=== PATIENT | female | born 1955 | race Caucasian/White ===

== ENCOUNTER 2019-05-02 11:58 | Inpatient (IN) | payer BC, OTHER ==
[~2019-05-02] VITALS: Ht 165.1 cm; Wt 108.4 kg
[~2019-05-02 11:58] MED LIST: FAMO-132 PO; HYDR25TA4 PO; INSULIN; METF1000 PO; NORCO5 PO; VYTORIN
[2019-05-02 12:19] VITALS: BP_SYST 148
[2019-05-02] MEDS ORDERED: NACL 0.9% 1,000 ML IV ONE (12:58)
[2019-05-02] MEDS ORDERED: ONDANSETRON HCL 4 MG/2 ML VIAL IVP ONE ×3 (13:00→15:30)
[2019-05-02] MEDS ORDERED: KETOROLAC TROMETHAMINE 30 MG VIAL IVP ONE (13:00)
[2019-05-02 13:32] LABS: BILIRUBIN,URINE NEGATIVE (NEGATIVE); BLOOD, URINE NEGATIVE (NEGATIVE); CLARITY/URINE CLEAR (CLEAR); COLOR,URINE YELLOW (YELLOW); GLUCOSE,URINE 3+ (NEGATIVE); KETONES,URINE TRACE (NEGATIVE); LEUKOCYTE ESTERASE ,URINE NEGATIVE (NEGATIVE); NITRITE, URINE NEGATIVE (NEGATIVE); PROTEIN URINE TRACE (NEGATIVE); UROBILINOGEN,URINE 0.2 (0.2-1.0)
[2019-05-02 13:49] LABS: ALBUMIN 3.7 g/dL (3.4-4.8); CALCIUM 9.4 mg/dL (8.4-11.0); CREATININE 1.24 mg/dL (0.55-1.30); POTASSIUM 4.5 mmol/L (3.5-5.1); TOTAL BILIRUBIN 1.2 mg/dL (0.0-1.0)
[2019-05-02 13:55] LABS: BACTERIA,URINE FEW /HPF (None Seen); RBC,URINE 0-3 /HPF (0-3); WBC,URINE 0-3 /HPF (0-3)
[2019-05-02 13:56] LABS: MUCUS,URINE None Seen /LPF (None Seen)
[2019-05-02] MEDS ORDERED: INSULIN REGULAR, HUMAN 10 UNITS/0.1 ML INJ IVP ONE ×2 (14:00→16:30)
[2019-05-02] MEDS ORDERED: fentaNYL CITRATE/PF 100 MCG/2 ML AMP IVP ONE (14:00)
[2019-05-02 14:02] LABS: BASOPHILS % (AUTO) 0.2 % (0.0-2.0); EOSINOPHILS % (AUTO) 0.1 % (0.0-4.0); HEMATOCRIT 36.9 % (36-48); HEMOGLOBIN 12.7 g/dL (12.0-16.0); LYMPHOCYTES # (AUTO) 1.6 K/uL (1.0-5.5); MEAN CORPUSCULAR HEMOGLOBIN 30 pg (27-31); MEAN CORPUSCULAR HGB CONC 34 % (32-36); MEAN CORPUSCULAR VOLUME 88 fL (79.0-98.0); MONOCYTES # (AUTO) 0.3 K/uL (0.0-1.0); MONOCYTES % (AUTO) 3.1 % (1.7-9.3); NEUTROPHILS # (AUTO) 7.1 K/uL (1.8-7.7); NEUTROPHILS % (AUTO) 78.6 % (40.0-70.0); PLATELET COUNT (AUTO) 217 K/uL (130-430); RED BLOOD CELL COUNT(AUTO) 4.21 MIL/uL (4.2-6.2); RED CELL DISTRIBUTION WIDTH 14.7 % (9.0-15.0)
[2019-05-02] MEDS ORDERED: LOSA100T3 PO (14:24)
[2019-05-02] MEDS ORDERED: LYR50 PO (14:24)
[2019-05-02] MEDS ORDERED: BUSP10TA3 PO (14:24)
[2019-05-02] MEDS ORDERED: ROSU40TA PO (14:24)
[2019-05-02] MEDS ORDERED: HYDR-3925 PO (14:24)
[2019-05-02] MEDS ORDERED: INSU500I SQ (14:24)
[2019-05-02] MEDS ORDERED: MORPHINE 4 MG/ML INJ. SYRINGE IVP ONE (15:30)
[2019-05-02] MEDS ORDERED: KETAMINE 30 MG/3 ML SYRINGE 30 MG in NS 100 ML IV ONE (17:30)
[2019-05-02] MEDS ORDERED: KETAMINE 30 MG/3 ML SYRINGE ONE (17:41)
[2019-05-02] MEDS ORDERED: MORPHINE 2 MG/ML INJ. SYRINGE IVP PRN (17:45)
[2019-05-02] MEDS ORDERED: MAGNESIUM SULFATE 50 ML IV PRN (17:45)
[2019-05-02] MEDS ORDERED: POTASSIUM CHLORIDE 20 MEQ TAB.PRT.SR PO PRN (17:45)
[2019-05-02] MEDS ORDERED: ACETAMINOPHEN 325 MG TABLET PO PRN (17:45)
[2019-05-02] MEDS ORDERED: LORazepam 2 MG/ML VIAL IVP PRN (17:45)
[2019-05-02] MEDS ORDERED: DEXTROSE 50% JECT 50 ML DISP.SYRIN IVP PRN (17:45)
[2019-05-02] MEDS ORDERED: ZOLPIDEM TARTRATE 5 MG TABLET PO PRN (17:45)
[2019-05-02] MEDS ORDERED: MUPIROCIN 2% TOPICAL OINTMENT 22 GM NS PRN (17:45)
[2019-05-02] MEDS ORDERED: DOCUSATE SODIUM 100 MG CAPSULE PO PRN (17:45)
[2019-05-02 18:03] VITALS: BP_SYST 143
[2019-05-02] MEDS: NACL 0.9% 1,000 ML IV SCH (18:16)
[2019-05-02] MEDS: INSULIN LISPRO SLIDING SCALE 100 UNITS/ML VIAL (humaLOG) SUBCUT PRN ×2 (18:28→21:00)
[2019-05-02] MEDS: busPIRone HCL 5 MG TABLET PO SCH (20:10)
[2019-05-02] MEDS: MORPHINE 2 MG/ML INJ. SYRINGE IVP PRN (20:11)
[2019-05-02] MEDS ORDERED: PREGABALIN PO SCH ×2 (21:00)
[2019-05-02] MEDS ORDERED: PREGABALIN 25 MG CAPSULE (LYRICA) PO SCH (21:00)
[2019-05-02] MEDS: HEPARIN SODIUM,PORCINE 5000 UNITS/ML VIAL SUBCUT SCH (21:02)
[2019-05-02] MEDS: INSULIN GLARGINE 100 UNITS/ML 10 ML VIAL SUBCUT SCH (21:04)
[2019-05-02] MEDS: ONDANSETRON HCL 4 MG/2 ML VIAL IVP PRN (23:05)
[2019-05-03 00:15] VITALS: BP_SYST 158
[2019-05-03] MEDS: MORPHINE 2 MG/ML INJ. SYRINGE IVP PRN ×5 (00:37→20:53)
[2019-05-03] MEDS: NACL 0.9% 1,000 ML IV SCH ×2 (04:39→17:38)
[2019-05-03] MEDS: INSULIN LISPRO SLIDING SCALE 100 UNITS/ML VIAL (humaLOG) SUBCUT PRN ×4 (05:48→20:46)
[2019-05-03] MEDS: ONDANSETRON HCL 4 MG/2 ML VIAL IVP PRN (06:33)
[2019-05-03 07:31] LABS: BASOPHILS % (AUTO) 0.2 % (0.0-2.0); EOSINOPHILS % (AUTO) 0.2 % (0.0-4.0); HEMATOCRIT 38.3 % (36-48); HEMOGLOBIN 13.1 g/dL (12.0-16.0); LYMPHOCYTES # (AUTO) 2.1 K/uL (1.0-5.5); MEAN CORPUSCULAR HEMOGLOBIN 30 pg (27-31); MEAN CORPUSCULAR HGB CONC 34 % (32-36); MEAN CORPUSCULAR VOLUME 88 fL (79.0-98.0); MONOCYTES # (AUTO) 0.5 K/uL (0.0-1.0); MONOCYTES % (AUTO) 6.3 % (1.7-9.3); NEUTROPHILS # (AUTO) 5.8 K/uL (1.8-7.7); NEUTROPHILS % (AUTO) 68.3 % (40.0-70.0); PLATELET COUNT (AUTO) 269 K/uL (130-430); RED BLOOD CELL COUNT(AUTO) 4.36 MIL/uL (4.2-6.2); RED CELL DISTRIBUTION WIDTH 14.6 % (9.0-15.0); WHITE BLOOD COUNT (AUTO) 8.6 K/uL (4.8-10.8)
[2019-05-03 07:36] LABS: CALCIUM 10.1 mg/dL (8.4-11.0); CREATININE 1.31 mg/dL (0.55-1.30); POTASSIUM 3.6 mmol/L (3.5-5.1)
[2019-05-03 07:50] VITALS: BP_SYST 144
[2019-05-03] MEDS ORDERED: PREGABALIN 25 MG CAPSULE (LYRICA) ONE (08:29)
[2019-05-03] MEDS: ATORVASTATIN 20 MG TABLET PO SCH (08:33)
[2019-05-03] MEDS: PREGABALIN 75 MG CAPSULE (LYRICA) PO SCH ×3 (08:34→20:30)
[2019-05-03] MEDS: busPIRone HCL 5 MG TABLET PO SCH ×2 (08:36→20:31)
[2019-05-03] MEDS: LOSARTAN POTASSIUM 50 MG TABLET (COZAAR) PO SCH (08:37)
[2019-05-03] MEDS: HEPARIN SODIUM,PORCINE 5000 UNITS/ML VIAL SUBCUT SCH ×2 (08:39→20:33)
[2019-05-03] MEDS ORDERED: PREGABALIN 25 MG CAPSULE (LYRICA) PO ONE (08:45)
[2019-05-03] MEDS ORDERED: ROSUVASTATIN CALCIUM 5 MG/TAB (CRESTOR) PO SCH (09:00)
[2019-05-03] MEDS: HYDROcodone/ACETAMIN 10-325 MG TAB PO PRN ×3 (11:16→23:43)
[2019-05-03 12:10] VITALS: BP_SYST 112
[2019-05-03] MEDS: PREGABALIN 25 MG CAPSULE (LYRICA) PO SCH ×2 (14:34→20:30)
[2019-05-03 16:15] VITALS: BP_SYST 120
[2019-05-03] MEDS: INSULIN GLARGINE 100 UNITS/ML 10 ML VIAL SUBCUT SCH (20:43)
[2019-05-04 00:10] VITALS: BP_SYST 131
[2019-05-04] MEDS: MORPHINE 2 MG/ML INJ. SYRINGE IVP PRN ×3 (02:11→18:41)
[2019-05-04] MEDS: NACL 0.9% 1,000 ML IV SCH ×2 (06:06→19:44)
[2019-05-04] MEDS: HYDROcodone/ACETAMIN 10-325 MG TAB PO PRN ×3 (06:07→20:58)
[2019-05-04] MEDS: INSULIN LISPRO SLIDING SCALE 100 UNITS/ML VIAL (humaLOG) SUBCUT PRN ×4 (06:11→20:59)
[2019-05-04 06:13] LABS: CALCIUM 9.3 mg/dL (8.4-11.0); CREATININE 1.17 mg/dL (0.55-1.30); POTASSIUM 4.1 mmol/L (3.5-5.1)
[2019-05-04 06:19] LABS: BASOPHILS % (AUTO) 0.5 % (0.0-2.0); EOSINOPHILS # (AUTO) 0.1 K/uL (0.0-0.4); EOSINOPHILS % (AUTO) 0.6 % (0.0-4.0); HEMATOCRIT 33.8 % (36-48); HEMOGLOBIN 11.6 g/dL (12.0-16.0); LYMPHOCYTES # (AUTO) 3.4 K/uL (1.0-5.5); LYMPHOCYTES % (AUTO) 37.5 % (20.5-51.5); MEAN CORPUSCULAR HEMOGLOBIN 30 pg (27-31); MEAN CORPUSCULAR HGB CONC 34 % (32-36); MEAN CORPUSCULAR VOLUME 88 fL (79.0-98.0); MONOCYTES # (AUTO) 0.8 K/uL (0.0-1.0); MONOCYTES % (AUTO) 8.2 % (1.7-9.3); NEUTROPHILS # (AUTO) 4.9 K/uL (1.8-7.7); NEUTROPHILS % (AUTO) 53.2 % (40.0-70.0); PLATELET COUNT (AUTO) 215 K/uL (130-430); RED BLOOD CELL COUNT(AUTO) 3.85 MIL/uL (4.2-6.2); RED CELL DISTRIBUTION WIDTH 14.6 % (9.0-15.0); WHITE BLOOD COUNT (AUTO) 9.2 K/uL (4.8-10.8)
[2019-05-04 08:00] VITALS: BP_SYST 116
[2019-05-04] MEDS: PREGABALIN 25 MG CAPSULE (LYRICA) PO SCH ×3 (09:07→20:54)
[2019-05-04] MEDS: ATORVASTATIN 20 MG TABLET PO SCH (09:07)
[2019-05-04] MEDS: busPIRone HCL 5 MG TABLET PO SCH ×2 (09:07→20:54)
[2019-05-04] MEDS: LOSARTAN POTASSIUM 50 MG TABLET (COZAAR) PO SCH (09:08)
[2019-05-04] MEDS: HEPARIN SODIUM,PORCINE 5000 UNITS/ML VIAL SUBCUT SCH ×2 (09:12→20:55)
[2019-05-04] MEDS: PREGABALIN 75 MG CAPSULE (LYRICA) PO SCH ×3 (09:24→20:54)
[2019-05-04] MEDS ORDERED: INSULIN NPH/REGULAR 70-30, 100 UNITS/ML, 10 ML VIAL SUBCUT ONE (09:45)
[2019-05-04 11:24] VITALS: BP_SYST 134
[2019-05-04] MEDS: cefTRIAXone 1 GM in D5W 50 ML IV SCH (11:26)
[2019-05-04 15:11] VITALS: BP_SYST 139
[2019-05-04] MEDS: INSULIN NPH/REGULAR 70-30, 100 UNITS/ML, 10 ML VIAL SUBCUT SCH (16:25)
[2019-05-04] MEDS: INSULIN GLARGINE 100 UNITS/ML 10 ML VIAL SUBCUT SCH (20:58)
[2019-05-05 00:12] VITALS: BP_SYST 107
[2019-05-05] MEDS: MORPHINE 2 MG/ML INJ. SYRINGE IVP PRN ×2 (00:51→06:32)
[2019-05-05] MEDS: HYDROcodone/ACETAMIN 10-325 MG TAB PO PRN ×2 (04:01→11:42)
[2019-05-05] MEDS: INSULIN LISPRO SLIDING SCALE 100 UNITS/ML VIAL (humaLOG) SUBCUT PRN ×2 (06:30→11:41)
[2019-05-05] MEDS: INSULIN NPH/REGULAR 70-30, 100 UNITS/ML, 10 ML VIAL SUBCUT SCH (06:30)
[2019-05-05 08:11] VITALS: BP_SYST 148
[2019-05-05] MEDS: NACL 0.9% 1,000 ML IV SCH (08:15)
[2019-05-05] MEDS: ATORVASTATIN 20 MG TABLET PO SCH (08:15)
[2019-05-05] MEDS: busPIRone HCL 5 MG TABLET PO SCH (08:16)
[2019-05-05] MEDS: PREGABALIN 75 MG CAPSULE (LYRICA) PO SCH (08:16)
[2019-05-05] MEDS: LOSARTAN POTASSIUM 50 MG TABLET (COZAAR) PO SCH (08:16)
[2019-05-05] MEDS: PREGABALIN 25 MG CAPSULE (LYRICA) PO SCH (08:16)
[2019-05-05] MEDS: HEPARIN SODIUM,PORCINE 5000 UNITS/ML VIAL SUBCUT SCH (08:17)
[2019-05-05] MEDS: cefTRIAXone 1 GM in D5W 50 ML IV SCH (09:23)
[2019-05-05 10:08] LABS: BASOPHILS % (AUTO) 0.5 % (0.0-2.0); EOSINOPHILS # (AUTO) 0.1 K/uL (0.0-0.4); HEMATOCRIT 35.7 % (36-48); LYMPHOCYTES % (AUTO) 37.1 % (20.5-51.5); MEAN CORPUSCULAR HEMOGLOBIN 30 pg (27-31); MEAN CORPUSCULAR HGB CONC 34 % (32-36); MEAN CORPUSCULAR VOLUME 89 fL (79.0-98.0); MONOCYTES # (AUTO) 0.5 K/uL (0.0-1.0); MONOCYTES % (AUTO) 5.9 % (1.7-9.3); NEUTROPHILS # (AUTO) 4.6 K/uL (1.8-7.7); NEUTROPHILS % (AUTO) 55.5 % (40.0-70.0); PLATELET COUNT (AUTO) 241 K/uL (130-430); RED BLOOD CELL COUNT(AUTO) 4.01 MIL/uL (4.2-6.2); RED CELL DISTRIBUTION WIDTH 14.7 % (9.0-15.0); WHITE BLOOD COUNT (AUTO) 8.2 K/uL (4.8-10.8)
[2019-05-05 10:16] LABS: CALCIUM 9.5 mg/dL (8.4-11.0); CREATININE 1.08 mg/dL (0.55-1.30); POTASSIUM 3.8 mmol/L (3.5-5.1)
[2019-05-05 12:25] VITALS: BP_SYST 121
[2019-05-05 12:44] VITALS: BP_SYST 121
== END 2019-05-05 13:20 | disposition home or self-care (01) | DRG 73 ==
LOC: SED 11:58 → SMU 17:23
PROVIDERS: ADMIT General Practice; ATTEND General Practice
DX: E11.43 Type 2 diabetes mellitus with diabetic autonomic (poly)neuropathy (principal); N17.0 Acute kidney failure with tubular necrosis; N39.0 Urinary tract infection, site not specified; E87.1 Hypo-osmolality and hyponatremia; I10 Essential (primary) hypertension; K21.9 Gastro-esophageal reflux disease without esophagitis; E11.40 Type 2 diabetes mellitus with diabetic neuropathy, unspecified; F41.1 Generalized anxiety disorder; E66.01 Morbid (severe) obesity due to excess calories; E11.65 Type 2 diabetes mellitus with hyperglycemia; G89.4 Chronic pain syndrome; Z88.2 Allergy status to sulfonamides; Z88.8 Allergy status to other drugs, medicaments and biological substances; Z79.1 Long term (current) use of non-steroidal anti-inflammatories (NSAID); Z79.84 Long term (current) use of oral hypoglycemic drugs; Z79.899 Other long term (current) drug therapy; Z79.4 Long term (current) use of insulin; Z68.39 Body mass index [BMI] 39.0-39.9, adult
CPT/HCPCS: 36415; 80048; 80053; 81000-TC; 82962; 83036; 83735-TC; 85025; 96361; 96374; 96375; 97116-GP; 97530-GP; 99285; J0696; J1644; J1815; J1885; J2270; J2405; J3010; J7030; J7060

== ENCOUNTER 2019-09-03 18:19 | Inpatient (IN) | payer BC ==
[~2019-09-03] VITALS: Ht 165.1 cm; Wt 115.7 kg
[~2019-09-03 18:19] MED LIST changes: +BUSP10TA3 PO; -FAMO-132 PO; +HYDR-3925 PO; +INSU500I SQ; -INSULIN; +LOSA100T3 PO; +LYR50 PO; -METF1000 PO; -NORCO5 PO; +ROSU40TA PO; -VYTORIN
[2019-09-03 18:55] VITALS: BP_SYST 120
[2019-09-03] MEDS ORDERED: NACL 0.9% 1,000 ML IV ONE (19:00)
[2019-09-03] MEDS ORDERED: ONDANSETRON HCL 4 MG/2 ML VIAL IVP ONE (19:00)
[2019-09-03 19:13] LABS: BASOPHILS % (AUTO) 0.2 % (0.0-2.0); EOSINOPHILS % (AUTO) 0.1 % (0.0-4.0); HEMATOCRIT 38.3 % (36-48); HEMOGLOBIN 13.1 g/dL (12.0-16.0); LYMPHOCYTES # (AUTO) 4.1 K/uL (1.0-5.5); LYMPHOCYTES % (AUTO) 29.6 % (20.5-51.5); MEAN CORPUSCULAR HEMOGLOBIN 31 pg (27-31); MEAN CORPUSCULAR HGB CONC 34 % (32-36); MEAN CORPUSCULAR VOLUME 89 fL (79.0-98.0); MONOCYTES % (AUTO) 7.1 % (1.7-9.3); NEUTROPHILS # (AUTO) 8.7 K/uL (1.8-7.7); PLATELET COUNT (AUTO) 342 K/uL (130-430); RED CELL DISTRIBUTION WIDTH 14.5 % (9.0-15.0); WHITE BLOOD COUNT (AUTO) 13.7 K/uL (4.8-10.8)
--- NOTE | 2019-09-03 19:15 | NUR ---
Pt placed to ER bed 03, to gown, to manager monitoring per previous shift at 1819. Pt c/o nausea and vomiting with abdominal pain x 3 days. Pt states abdominal pain is from N/V. Pt also c/o H/A since PMD changed her medications from Losartan to Hydralizine 2 weeks ago. TRAY, KEL.
--- NOTE | 2019-09-03 19:15 | NUR ---
Pt seen by Dr. Gonzalez at 1830.
[2019-09-03 19:35] LABS: ALBUMIN 3.6 g/dL (3.4-4.8); CALCIUM 9.7 mg/dL (8.4-11.0); CREATININE 1.36 mg/dL (0.55-1.30); TOTAL BILIRUBIN 0.6 mg/dL (0.0-1.0)
[2019-09-03 19:45] LABS: POTASSIUM 2.3 mmol/L (3.5-5.1)
--- NOTE | 2019-09-03 20:10 | NUR ---
Dr. Gregorio at bedside.
[2019-09-03] MEDS ORDERED: KETOROLAC TROMETHAMINE 30 MG VIAL IVP ONE (20:15)
[2019-09-03] MEDS ORDERED: KCL 40 mEq in 100 mL (PREMIX) 100 ML IV ONE (20:15)
--- NOTE | 2019-09-03 20:40 | NUR ---
Pt c/o abdominal pain and H/A 06/12. Dr. Gregorio made aware.
[2019-09-03] MEDS ORDERED: KCL 20 mEq in 100 mL (PREMIX) 100 ML IV ONE (20:45)
[2019-09-03] MEDS ORDERED: KCL 20 mEq in 100 mL (PREMIX) 200 ML IV ONE (20:49)
--- NOTE | 2019-09-03 21:00 | NUR ---
Pt c/o burning to PIV site r/t KCL infusion. Infusion rate decreased to 25 mL/hr and pain relieved. No s/s infiltration to site, good blood return noted.
--- NOTE | 2019-09-03 21:30 | NUR ---
NS bolus with KCL 40 mEq infusing at 25 mL/hr to patent and secure PIV LAC. No s/s infiltration. No needs verbalized at this time. Family member at bedside. KEL FELIZ.
--- NOTE | 2019-09-03 22:05 | NUR ---
Note kalee in EDM - 09/03/19 at 2231 by WAQAR Patient will be admitted to care of Dr. Bolton. Admitted to Tele unit. Will go to room 122A. Belongings list completed. Complete and up to date summary report printed. SBAR report to be given at bedside with opportunity for questions.
[2019-09-03] MEDS ORDERED: HYDR-4038 PO (22:14)
[2019-09-03] MEDS ORDERED: PREG100C PO (22:14)
[2019-09-03] MEDS ORDERED: ROSU40TA23 PO (22:14)
--- NOTE | 2019-09-03 22:16 | NUR ---
Medication reconciliation completed with information provided by patient. Any prior medication reconciliation on file was reviewed and corrected.
[2019-09-03] MEDS: ONDANSETRON HCL 4 MG/2 ML VIAL IVP PRN (22:30)
--- NOTE | 2019-09-03 22:30 | NUR ---
Pt c/o nausea. Medicated with Zofran 4 mg IVP per admit orders.
--- NOTE | 2019-09-03 22:31 | NUR ---
Patient will be admitted to care of Dr. Bolton. Admitted to Tele unit. Will go to room 122A. Belongings list completed. Complete and up to date summary report printed. SBAR report to be given at bedside with opportunity for questions.
[2019-09-03] MEDS ORDERED: ONDANSETRON HCL 4 MG/2 ML VIAL ONE (22:37)
--- NOTE | 2019-09-03 22:49 | NUR ---
ADMIT NOTE Received pt from ER to the floor with a diagnosis of intractable nausea and vomitng, hypokalemia. Admission process initiated. patient oriented to pain management, safety and call light-teach back done.
[2019-09-03] MEDS ORDERED: KCL 20 mEq in D5/0.45NS 1000mL 1,000 ML IV SCH (23:00)
--- NOTE | 2019-09-03 23:30 | NUR ---
initial notes: pt is awake, alert,oriented x 4. complain of nausea and vomiting and back pain. no sob. not distress. stable vital sign. iv lock to left ac gauge 20- intact and patent. at bedside. pt is able to ambulate with steady gait.discuss plan of care,orient to room and safety and call light, pt verbalized understanding. call light in reach. bed lowest positin and lock, alarm on. will monitor.
[2019-09-04 00:13] VITALS: BP_SYST 139
[2019-09-04] MEDS: KETOROLAC TROMETHAMINE 15 MG VIAL IVP PRN ×4 (00:15→23:04)
[2019-09-04 00:19] VITALS: BP_SYST 139
--- NOTE | 2019-09-04 00:38 | NUR ---
dr. ortizium call back- follow-up on cmp. stated don't call him, and if potassium level is 3.5 no orders, if potassium level is below 3.5 to 3 give k-dur po 40 meq.
[2019-09-04 01:36] LABS: CALCIUM 8.6 mg/dL (8.4-11.0); CREATININE 1.32 mg/dL (0.55-1.30)
[2019-09-04] MEDS ORDERED: KCL 20 mEq in D5/0.45NS 1000mL 1,000 ML IV ONE (01:39)
[2019-09-04 01:41] LABS: ALBUMIN 3.2 g/dL (3.4-4.8); TOTAL BILIRUBIN 0.7 mg/dL (0.0-1.0)
[2019-09-04 01:46] LABS: POTASSIUM 2.3 mmol/L (3.5-5.1)
--- NOTE | 2019-09-04 01:48 | NUR ---
PAGED PAGED DR. GIBSON REGARDING CRITICAL LAB RESULTS
[2019-09-04] MEDS ORDERED: POTASSIUM CHLORIDE 20 MEQ TAB.PRT.SR PO ONE (02:00)
--- NOTE | 2019-09-04 02:00 | NUR ---
sleeping, no pain at this time. no vomiting. stable.
[2019-09-04] MEDS: KCL 20 mEq in 100 mL (PREMIX) 100 ML IV SCH ×2 (02:12→04:13)
--- NOTE | 2019-09-04 04:00 | NUR ---
sleeping on her side. no sob. ivf infusing well. mary light in reach. stable. will monitor.
[2019-09-04] MEDS: ONDANSETRON HCL 4 MG/2 ML VIAL IVP PRN ×3 (05:15→14:35)
--- NOTE | 2019-09-04 05:30 | NUR ---
pt is complain of nausea nd vomiting, prn zofran given, needs attended. call light in reach. remind pt not toe eat due pending abdominal US. pt agree. will monitor.
[2019-09-04] MEDS: INSULIN REGULAR, HUMAN 100 UNITS/ML, 10 ML VIAL (humuLIN R) SUBCUT PRN ×4 (06:35→22:53)
--- NOTE | 2019-09-04 07:20 | NUR ---
closing: pt is resting, wakes up during report. stable ivf infusing well. stable. needs attended, call light in reach. will follow-up.
--- NOTE | 2019-09-04 07:30 | NUR ---
closing: pt is resting, no sob, not distress. stable the whole shift. ivf infusing to left forearm, ppn and lipids infusing well. to right upper arm midline. needs attended the whole shift. bedside report given to shaina melvin. Addendum: 09/04/19 at 0744 by Paulo Castaneda RN disregard wrong entry.
--- NOTE | 2019-09-04 07:55 | NUR ---
OPENING NOTE patient is resting in bed, no signs of distress at this time, alert and oriented, educated it operations analyst light system and plan of care, patient verbalized understanding, NPO at this time for ordered ultrasound of the abdomen, no other needs at this time, fall/safety precautions in place.
[2019-09-04 08:04] VITALS: BP_SYST 120
[2019-09-04] MEDS: PANTOPRAZOLE SODIUM 40 MG/VIAL (PROTONIX) IVP SCH ×2 (08:51→21:15)
--- NOTE | 2019-09-04 09:20 | NUR ---
prn zofran patient is vomiting, prn zofran given, patient tolerated well, will not give PO meds at this time, until nausea and vomiting goes away, patient verbalized understanding.
[2019-09-04 09:28] LABS: BASOPHILS % (AUTO) 0.3 % (0.0-2.0); HEMATOCRIT 35.5 % (36-48); LYMPHOCYTES # (AUTO) 2.6 K/uL (1.0-5.5); LYMPHOCYTES % (AUTO) 20.8 % (20.5-51.5); MEAN CORPUSCULAR HEMOGLOBIN 31 pg (27-31); MEAN CORPUSCULAR HGB CONC 34 % (32-36); MEAN CORPUSCULAR VOLUME 92 fL (79.0-98.0); MONOCYTES # (AUTO) 0.8 K/uL (0.0-1.0); MONOCYTES % (AUTO) 6.4 % (1.7-9.3); NEUTROPHILS % (AUTO) 72.5 % (40.0-70.0); PLATELET COUNT (AUTO) 277 K/uL (130-430); RED BLOOD CELL COUNT(AUTO) 3.85 MIL/uL (4.2-6.2); WHITE BLOOD COUNT (AUTO) 12.4 K/uL (4.8-10.8)
[2019-09-04 09:46] LABS: CALCIUM 8.4 mg/dL (8.4-11.0); CREATININE 1.7 mg/dL (0.55-1.30); POTASSIUM 3.8 mmol/L (3.5-5.1)
[2019-09-04 09:47] LABS: ALBUMIN 3.2 g/dL (3.4-4.8); TOTAL BILIRUBIN 0.7 mg/dL (0.0-1.0)
[2019-09-04] MEDS ORDERED: INSULIN REGULAR, HUMAN 100 UNITS/ML, 10 ML VIAL SUBCUT ONE ×2 (10:30→20:45)
[2019-09-04] MEDS: METOCLOPRAMIDE HCL 10 MG/2 ML VIAL IVP PRN ×2 (10:44→16:48)
[2019-09-04] MEDS: KCL 20 mEq in 0.45% NS 1000 mL 1,000 ML IV SCH ×2 (11:20→21:23)
--- NOTE | 2019-09-04 11:20 | NUR ---
IV fluids changed spoke to Dr Bolton earlier about the patient's critical lab for her blood sugar, he gave me new orders, I educated the patient and the family member about these new orders, they verbalized understanding, educated on medication uses at side effects and about the new IV fluids, they verbalized understanding, patient tolerated well, no other needs addressed at this time, fall/safety precautions in place.
[2019-09-04] MEDS: PREGABALIN 25 MG CAPSULE (LYRICA) PO SCH ×4 (11:42→21:16)
[2019-09-04 12:20] VITALS: BP_SYST 135
--- NOTE | 2019-09-04 13:00 | NUR ---
BLOOD SUGAR CHECKED patient was complaining of left eye blurriness, blood sugar check at it was 512, Dr Bolton was in the station and I informed him about the patient, he gave me new orders, I explained to the patient and about these new orders, they verbalized understanding.
[2019-09-04] MEDS ORDERED: INSULIN REGULAR, HUMAN 100 UNITS/ML, 10 ML VIAL IVP ONE (13:15)
--- NOTE | 2019-09-04 14:28 | NUR ---
Dr Che marie patent's brought the insulin she uses at home, I sent it to pharmacy, per Dr Bolton, advance patient's diet to full liquid and once she tolerated eating more and less N/V, we will start her on her insulin.
[2019-09-04] MEDS: busPIRone HCL 5 MG TABLET PO SCH ×3 (14:40→21:16)
[2019-09-04] MEDS: hydrALAZINE HCL 25 MG TABLET PO SCH ×2 (14:40→15:24)
--- NOTE | 2019-09-04 14:40 | NUR ---
SS NOTE: MATERIALS ASSOCIATE was referred to see patient for assessment. MATERIALS ASSOCIATE met with patient while she was sitting on chair. Demographic information confirmed. Per pt she came in via ED due to nausea and vomiting. Pt states her glucose level was high and her vision from her left eye changed. Pt lives with her , daughter in law and two young grand children. Pt lives in a one dwight home with two steps to get to the front door. Pt utilizes/owns a walker only as her DME and is able to get to the steps with assistance. Pt states she is dependent on her walker and on her to drive her to/from MD appointment and when in the community. Pt also states she does not cook anymore (her or dtr in law does the cooking), but is able to bathe and administer insulin on her own. Pt states she is currently depressed, stating her reason of sadness as "because I don't feel good". Pt last saw a therapist 5 years ago via [facility], but has not seen one lately. Pt states her PCP prescribes her with her depression medication. Pt denies suicidal ideation/homicidal ideation in the past and currently. Pt states when she is sad she talks to her niece in [place] and stated she receives support at home. Pt was staring the floor and when asked if there is anything else SS can do or provide, pt stared crying when talking about her two sons that lives out of state ([place] and [place]). Pt states she does not want to bother them and the two sons does not know that she is in the hospital. MATERIALS ASSOCIATE offered to have patient use house phone, pt refused and stated she will have her bring her cell phone instead. Renata GRACE notified, pt might be needing a phone; RN agreed. SS will remain available for emotional support and when needed. Addendum: 09/04/19 at 1510 by Bahman RASCON MATERIALS ASSOCIATE provided pt with outpatient mental health and [facility] resources. Pt does not have any [facility] or [facility] preference if needed for discharge.
[2019-09-04 16:15] VITALS: BP_SYST 128
--- NOTE | 2019-09-04 16:45 | NUR ---
prn medications patient is vomiting and complaining of lower back pain, educated on medication use and side effects, patient verbalized understanding, patient tolerated well, no other needs at this time.
--- NOTE | 2019-09-04 18:44 | NUR ---
CLOSING NOTE patient is resting in bed, family at the bedside, no signs of distress at this time, IV fluids running and patient tolerating well, patient stated that her vision has improved, no other needs at this time, fall/safety precautions in place, Dr Bolton saw patient again, will endorse report to shift production associate nurse to continue with care, patient has Q4 blood sugar checks and order to give 15 units of sliding scale in above 400, I informed Dr Bolton that if he wants us to keep calling him to report the critical, per Dr Bolton if the blood sugar is below 500 we do not need to call him but if it is above 500 it is okay to page him, will endorse this to shift production associate nurse. Patient has prn medications for nausea and pain.
[2019-09-04 20:00] VITALS: BP_SYST 99
--- NOTE | 2019-09-04 20:00 | NUR ---
OPENING NOTE: RECIEVED REPORT, A/O/X/4, RESPIRATIONS EVEN AND UNLABORED, ROOM AIR, FAMILY @ BEDSIDE,AMBULATES WITH WALJKER, VOIDING CLEAR YELLOW URINE, DOES REQUIRE SBA WHEN ATTEMPTING TO GET OOB.NSR ON TELE MONITOR, SKIN INTACT,1/2 NS+20MEQ K+ INFUSING @ 100 ML/HR IN LAC#20G, NO N/V NOTED,BLOOD GLUCOSE = 557, NOTIFIED AND ORDERED 10 UNITS REGULAR INSULIN TO BE GIVEN, RETAKE BLOOD SUGAR IN 2 HRS AND IF BELOW 500 GIVE HER ROUTINE LANTUS AND COVERAGE IF OVER 500 CALL HIM BACK FOR FURTHER ORDERS.
[2019-09-04] MEDS ORDERED: INSULIN GLARGINE 100 UNITS/ML 10 ML VIAL SUBCUT SCH (21:00)
--- NOTE | 2019-09-04 22:00 | NUR ---
BLOOD GLUCOSE RETAKEN RESULTS = 432,PATIENT RECIEVED HER ROUTINE 10 UNITS LANTUS @ HS AND WAS GIVEN REGULAR INSULIN COVERAGE OF 15 UNITS ORDERED PER SLIDING SCALE, C/O ABDOMINAL PAIN WAS MEDICATED WITH TORADOL 15 MG IVP, RESTING QUIETLY IN BED WITH EYES CLOSED.
--- NOTE | 2019-09-05 01:00 | NUR ---
BLOOD GLUCOSE RESULTS = 179, GIVEN 2 UNITS REGULAR INSULIN PER PROTOCOL, CO BACK AND ABDOMINAL PAIN, STATES TORADOL DID NOT HELP HER MUCH, CALL PLACED TO AWAITING CALL BACK
--- NOTE | 2019-09-05 02:30 | NUR ---
PATIENT RESTING QUIETLY IN BED WITH EYES CLOSED, IN NO ACUTE DISTRESS.
[2019-09-05] MEDS: INSULIN REGULAR, HUMAN 100 UNITS/ML, 10 ML VIAL (humuLIN R) SUBCUT PRN ×7 (02:39→23:18)
--- NOTE | 2019-09-05 05:00 | NUR ---
BLOOD GLUCOSE RESULTS = 156, RECIEVED 2 UNITS REGULAR INSULIN PER PROTOCOL//RESTING QUIETLY IN ED WITH EYES CLOSED, EASILY AROUSED.
[2019-09-05] MEDS: KETOROLAC TROMETHAMINE 15 MG VIAL IVP PRN (05:13)
[2019-09-05] MEDS: KCL 20 mEq in 0.45% NS 1000 mL 1,000 ML IV SCH (06:10)
--- NOTE | 2019-09-05 06:55 | NUR ---
CLOSING NOTE: RESTING QUIETLY IN BED WITH EYES CLOSED, BLOOD SUGAR RESULTS TRENDING DOWN DURING THE NITE,CONTINUES TO C/O PAIN IN ABDOMIN AND BACK, TORADOL HJOLDS ONLY A SHORT TIME, WILL ASK ON COMING RN TO FOL;LOW UP WITH MD.
--- NOTE | 2019-09-05 07:36 | NUR ---
Opening Note Received report from job developer for deaf adults RN. Pt sitting up in bed, c/o pain in arm. IV site intact, patent, no infiltration noted. Offered alternative therapy for pain treatment since pt received pain medication. Will follow up with orders.
[2019-09-05 07:56] LABS: BASOPHILS % (AUTO) 0.5 % (0.0-2.0); EOSINOPHILS # (AUTO) 0.1 K/uL (0.0-0.4); EOSINOPHILS % (AUTO) 1.4 % (0.0-4.0); HEMATOCRIT 36.2 % (36-48); HEMOGLOBIN 12.3 g/dL (12.0-16.0); LYMPHOCYTES # (AUTO) 2.9 K/uL (1.0-5.5); LYMPHOCYTES % (AUTO) 32.1 % (20.5-51.5); MEAN CORPUSCULAR HEMOGLOBIN 31 pg (27-31); MEAN CORPUSCULAR HGB CONC 34 % (32-36); MEAN CORPUSCULAR VOLUME 91 fL (79.0-98.0); MONOCYTES # (AUTO) 0.7 K/uL (0.0-1.0); MONOCYTES % (AUTO) 7.8 % (1.7-9.3); NEUTROPHILS # (AUTO) 5.3 K/uL (1.8-7.7); NEUTROPHILS % (AUTO) 58.2 % (40.0-70.0); PLATELET COUNT (AUTO) 276 K/uL (130-430); RED BLOOD CELL COUNT(AUTO) 3.98 MIL/uL (4.2-6.2); RED CELL DISTRIBUTION WIDTH 14.7 % (9.0-15.0); WHITE BLOOD COUNT (AUTO) 9.1 K/uL (4.8-10.8)
[2019-09-05 08:06] LABS: CREATININE 1.21 mg/dL (0.55-1.30); POTASSIUM 3.7 mmol/L (3.5-5.1)
[2019-09-05 09:14] VITALS: BP_SYST 134
[2019-09-05] MEDS: busPIRone HCL 5 MG TABLET PO SCH ×2 (10:01→20:26)
[2019-09-05] MEDS: PREGABALIN 25 MG CAPSULE (LYRICA) PO SCH ×3 (10:01→20:26)
[2019-09-05] MEDS: hydrALAZINE HCL 25 MG TABLET PO SCH (10:02)
[2019-09-05] MEDS: PANTOPRAZOLE SODIUM 40 MG/VIAL (PROTONIX) IVP SCH ×2 (10:05→21:00)
--- NOTE | 2019-09-05 10:31 | NUR ---
Nutrition Update Giovanny Scale 18 noted. Pt admitted for intractable N/V, hypokalemia. Diet: full liquid BMI: 42.4 kg/m2 RD to follow per nutrition care standards.
--- NOTE | 2019-09-05 11:40 | NUR ---
Pt c/o pain at IV site. Stopped IV fluids. Pt states to start IV at a later time.
[2019-09-05 11:57] VITALS: BP_SYST 153
--- NOTE | 2019-09-05 12:03 | NUR ---
Dr. Bolton return call. Notified Dr. Bolton about pt's pain medication, new orders made and carried out.
--- NOTE | 2019-09-05 12:03 | NUR ---
Paged Dr. Bolton for orders. Waiting for call back.
--- NOTE | 2019-09-05 13:30 | NUR ---
Notified Dr. Bolton about IV site and for new orders. Dr. Bolton states to stop fluids and advance diet as tolerated. New orders made and carried out.
[2019-09-05] MEDS: ACETAMINOPHEN 325 MG TABLET PO PRN ×2 (13:53→23:08)
[2019-09-05 16:28] VITALS: BP_SYST 136
--- NOTE | 2019-09-05 17:22 | NUR ---
Dietitian Recommendations * Recommend cardiac[facility], RD Please refer to Nutrition Assessment for details. Signed: 09/05/19 at 1723 by Kelsey UNGER <Co-Signature Required> Co-Signed: 09/05/19 at [address]
--- NOTE | 2019-09-05 18:40 | NUR ---
Closing Pt states no distress at this time. Pt provided with dinner tray and states no n/v when eating. No other complaints noted. Will endorse plan of care to material handler 2nd shift RN.
[2019-09-05 19:00] VITALS: BP_SYST 133
--- NOTE | 2019-09-05 19:15 | NUR ---
change of shift.pt.presents quiescent affect;calm,resting.pt.stated possible d/c home tonight.pt.stated slight pain;headache. general status stable.respiratory status stable@room air.unlabored.pt.capable to ambulate utilizing the walker.call light/telephone w/in reach of the pt.
[2019-09-05 20:00] VITALS: BP_SYST 133
--- NOTE | 2019-09-05 20:00 | NUR ---
pt assessed.v/s assessed.values w/in normal limits.pt.stated she presents pain;head;to f/u review of the jafh-jgy-uebv.pt.had stated that she may be d/c tonight. present allowed pt to decide to stay in hospital or be d/d/@bedside.conferred w/pt. pt had decided to stay in hospital.i have appirsed the pt.that i may provide snacks /beverages w/in the shift.no requests posited @this hour.general status stable;respiratory status stable:@room air;unlabored;02-sat%=98%.pt.utilizing the walker.call light/telephone w/in reach of the pt.
--- NOTE | 2019-09-05 20:30 | NUR ---
i have assessed the blood glucose;value;194mg/dl.i have apprised the pt. of the value.
[2019-09-05] MEDS ORDERED: INSULIN GLARGINE 100 UNITS/ML 10 ML VIAL SUBCUT SCH (21:00)
--- NOTE | 2019-09-05 21:00 | NUR ---
2100p medications administered.i have administered insulin;regular;2-units.no requests posited@this hour.
--- NOTE | 2019-09-05 22:00 | NUR ---
pt.assessed.pt.presents quiescent affect;calm,resting.pt.had requested snacks/beverages.i have provided the snacks/juice. no c/o pain,nausea.pt.capable to reposition self.general status stable.respiratory status stable;unlabored.call light/telephone w/in reach of the pt.
--- NOTE | 2019-09-05 23:00 | NUR ---
pt.requested medication;pain:location;head.i have administered tylenol;650mg po.to f/u re:pain medication efficacy per pain mgx protocol.no additional requests posited@this hour.
[2019-09-06] VITALS: BP_SYST 135
--- NOTE | 2019-09-06 | NUR ---
pt.assessed.v/s assessed;values w/in normal limits.no c/o pain,nausea.no requests posited@this hour.general status stable. respiratory status stable;unlabored.pt.capable to reposition self.call light/telephone w/in reach of the pt.
--- NOTE | 2019-09-06 02:00 | NUR ---
pt.assessed pt.presents quiescent affect;calm,somnolent.pt.capable to reposition self.general status stable. respiratory status stable. call light/telephone w/in reach of the pt.
--- NOTE | 2019-09-06 03:00 | NUR ---
pt.had requested medication;pain.i have administered tylenol;650mg po.to f/u re;pain medication efficacy per pain mgx protocol. i have assessed the blood glucose;value;260mg/dl i have administered;6-units;regular insulin.no requests posited@this hour.
[2019-09-06] MEDS: ACETAMINOPHEN 325 MG TABLET PO PRN (03:16)
[2019-09-06] MEDS: INSULIN REGULAR, HUMAN 100 UNITS/ML, 10 ML VIAL (humuLIN R) SUBCUT PRN (03:24)
--- NOTE | 2019-09-06 04:00 | NUR ---
pt.assessed.pt.presents quiescent affect;calm,somnolent.general status stable.respiratory status stable;unlabored.pt.capable reposition self.call light/telephone w/in reach of the pt.
== END 2019-09-07 10:30 | disposition home or self-care (01) | DRG 391 ==
LOC: SED 18:19 → STU 21:45 → SMU 09-05 20:04
PROVIDERS: ADMIT Family Medicine; ATTEND Family Medicine
DX: K52.9 Noninfective gastroenteritis and colitis, unspecified (principal); N17.0 Acute kidney failure with tubular necrosis; E87.6 Hypokalemia; E11.9 Type 2 diabetes mellitus without complications; G89.29 Other chronic pain; I10 Essential (primary) hypertension; K21.9 Gastro-esophageal reflux disease without esophagitis; Z79.899 Other long term (current) drug therapy; Z88.1 Allergy status to other antibiotic agents; Z88.2 Allergy status to sulfonamides; Z90.49 Acquired absence of other specified parts of digestive tract; Z90.710 Acquired absence of both cervix and uterus; Z79.4 Long term (current) use of insulin; K29.00 Acute gastritis without bleeding
CPT/HCPCS: 36415; 71045; 76700-TC; 80048; 80053; 82150-TC; 82962; 83605; 83690-TC; 85025; 87040-TC; 93005; 96361; 96365; 96366; 96375; 99285; C9113; G0378; J1815; J1885; J2405; J2765; J3480; J7030

== ENCOUNTER 2019-09-18 03:18 | Emergency (ER) | payer BC ==
[~2019-09-18] VITALS: Ht 165.1 cm; Wt 113.4 kg
[~2019-09-18 03:18] MED LIST changes: +HYDR-4038 PO; +PREG100C PO; +ROSU40TA23 PO
[2019-09-18 03:25] VITALS: BP_SYST 147
--- NOTE | 2019-09-18 03:25 | NUR ---
Patient to ER bed 07 to gown for evaluation. Side rails up.
--- NOTE | 2019-09-18 03:37 | NUR ---
Pt presents to ER with with c/o nausea, vomiting, and chest pain. Pt states nausea and vomiting started 09/17/2019 morning. Pt states "I can't keep anything down." Pt states chest pain. Pt states pain is 9/10. Pt states chest pain feels like pressure in her chest. Pt states legs and feet are itchy. Pt states no SOB and no fever. Strong pulse of dorsalis pedis, <3 cap refil, pt can move toes and legs when asked, pt has full sensation, color is WNL.
--- NOTE | 2019-09-18 03:52 | NUR ---
ER Dr. Watts at bedside examining patient.
--- NOTE | 2019-09-18 03:59 | NUR ---
Herbert granda in EDM - 09/18/19 at 0406 by [email or web address] Verbal order received to administer 4 mg of Zofran IVP. Medication was given, pt tolerated well.
--- NOTE | 2019-09-18 03:59 | NUR ---
Verbal order received from Dr. Watts to administer 4 mg of Zofran IVP. Medication was given, pt tolerated well.
[2019-09-18] MEDS ORDERED: NACL 0.9% 1,000 ML IV ONE (04:00)
[2019-09-18] MEDS ORDERED: ONDANSETRON HCL 4 MG/2 ML VIAL IVP ONE (04:00)
[2019-09-18] MEDS ORDERED: PANTOPRAZOLE SODIUM 40 MG/VIAL (PROTONIX) IVP ONE (04:00)
[2019-09-18] MEDS ORDERED: ONDANSETRON HCL 4 MG/2 ML VIAL ONE ×2 (04:03→04:33)
--- NOTE | 2019-09-18 04:04 | NUR ---
Medication reconciliation completed with information provided by patient at bedside. Any prior medication reconciliation on file was reviewed and corrected.
[2019-09-18 04:10] LABS: BASOPHILS % (AUTO) 0.4 % (0.0-2.0); EOSINOPHILS % (AUTO) 0.4 % (0.0-4.0); HEMATOCRIT 38.6 % (36-48); HEMOGLOBIN 13.4 g/dL (12.0-16.0); LYMPHOCYTES # (AUTO) 2.1 K/uL (1.0-5.5); LYMPHOCYTES % (AUTO) 25.3 % (20.5-51.5); MEAN CORPUSCULAR HEMOGLOBIN 31 pg (27-31); MEAN CORPUSCULAR HGB CONC 35 % (32-36); MEAN CORPUSCULAR VOLUME 90 fL (79.0-98.0); MONOCYTES # (AUTO) 0.4 K/uL (0.0-1.0); MONOCYTES % (AUTO) 5.1 % (1.7-9.3); NEUTROPHILS # (AUTO) 5.7 K/uL (1.8-7.7); NEUTROPHILS % (AUTO) 68.8 % (40.0-70.0); PLATELET COUNT (AUTO) 279 K/uL (130-430); RED CELL DISTRIBUTION WIDTH 14.4 % (9.0-15.0); WHITE BLOOD COUNT (AUTO) 8.2 K/uL (4.8-10.8)
[2019-09-18 04:21] LABS: ALBUMIN 3.5 g/dL (3.4-4.8); CALCIUM 9.4 mg/dL (8.4-11.0); CREATININE 1.06 mg/dL (0.55-1.30); TOTAL BILIRUBIN 0.9 mg/dL (0.0-1.0)
[2019-09-18 04:24] LABS: POTASSIUM 2.8 mmol/L (3.5-5.1)
[2019-09-18] MEDS ORDERED: MORPHINE 4 MG/ML INJ. SYRINGE IVP ONE (04:30)
[2019-09-18] MEDS ORDERED: DIPHENHYDRAMINE INJ 50 MG/ML VIAL IVP ONE (04:30)
[2019-09-18] MEDS ORDERED: KCL 20 mEq in 100 mL (PREMIX) 100 ML IV ONE (04:30)
--- NOTE | 2019-09-18 05:24 | NUR ---
Patient transported to radiology via gurney in stable condition, accompanied by nuclear test technician.
[2019-09-18] MEDS ORDERED: IOHEXOL 100 ML IV ONE (05:41)
--- NOTE | 2019-09-18 05:51 | NUR ---
Patient returned from radiology via [facility] in stable condition.
--- NOTE | 2019-09-18 06:14 | NUR ---
ER Dr. Watts at bedside explaining results with patient.
--- NOTE | 2019-09-18 07:00 | NUR ---
Report given to SANJAY Rivera. All care endorsed.
--- NOTE | 2019-09-18 07:08 | NUR ---
Patient given written and verbal discharge instructions and verbalizes understanding. ER MD discussed with patient the results and treatment provided. Patient in stable condition. ID arm band removed. IV catheter removed intact and dressing applied, no active bleeding. Rx of zofran odt, protonix given. Patient educated on pain management and to follow up with PMD. Pain Scale 0/10. Opportunity for questions provided and answered. Medication side effect fact sheet provided.
[2019-09-18 07:11] VITALS: BP_SYST 116
== END 2019-09-18 07:11 | disposition home or self-care (01) ==
LOC: SED 03:18
DX: R11.2 Nausea with vomiting, unspecified (principal); R10.13 Epigastric pain; I10 Essential (primary) hypertension; E11.9 Type 2 diabetes mellitus without complications; F32.9 Major depressive disorder, single episode, unspecified
CPT/HCPCS: 36415; 74177; 80053; 83690; 84484; 85025; 93005; 96361; 96374; 96375; 99284; C9113; J1200; J2270; J2405; J3480; J7030; Q9967

== ENCOUNTER 2019-09-26 10:51 | Inpatient (IN) | payer BC ==
[~2019-09-26] VITALS: Ht 162.6 cm; Wt 111.1 kg
[~2019-09-26 10:51] MED LIST changes: -LOSA100T3 PO; -PREG100C PO; -ROSU40TA PO
[2019-09-26 11:12] VITALS: BP_SYST 117
--- NOTE | 2019-09-26 11:40 | NUR ---
Patient to ER bed 8 to gown for evaluation. Side rails up. Report given to SANJAY Lovell.
[2019-09-26] MEDS ORDERED: NACL 0.9% 1,000 ML IV ONE (11:45)
[2019-09-26] MEDS ORDERED: ONDANSETRON HCL 4 MG/2 ML VIAL IVP ONE (11:45)
--- NOTE | 2019-09-26 12:00 | NUR ---
pt arrives from [facility] w/ c/o N/V for one month. Pt states that she takes anti acid meds, however, has not been able to keep her meds down.
--- NOTE | 2019-09-26 12:10 | NUR ---
# 22 gauge angiocath placed to LAC. Use of asceptic technique. Opsite placed over site. Blood return noted. Blood for lab drawn from site. Flushed with 10 cc of normal saline. No evidence of infiltration noted. Patient tolerated well.
[2019-09-26 12:24] LABS: BASOPHILS # (AUTO) 0.1 K/uL (0.0-0.2); BASOPHILS % (AUTO) 0.7 % (0.0-2.0); EOSINOPHILS % (AUTO) 0.2 % (0.0-4.0); HEMATOCRIT 39.3 % (36-48); HEMOGLOBIN 13.5 g/dL (12.0-16.0); LYMPHOCYTES # (AUTO) 1.8 K/uL (1.0-5.5); LYMPHOCYTES % (AUTO) 23.1 % (20.5-51.5); MEAN CORPUSCULAR HEMOGLOBIN 31 pg (27-31); MEAN CORPUSCULAR HGB CONC 34 % (32-36); MEAN CORPUSCULAR VOLUME 90 fL (79.0-98.0); MONOCYTES # (AUTO) 0.4 K/uL (0.0-1.0); MONOCYTES % (AUTO) 5.3 % (1.7-9.3); NEUTROPHILS # (AUTO) 5.6 K/uL (1.8-7.7); NEUTROPHILS % (AUTO) 70.7 % (40.0-70.0); PLATELET COUNT (AUTO) 279 K/uL (130-430); RED BLOOD CELL COUNT(AUTO) 4.38 MIL/uL (4.2-6.2); RED CELL DISTRIBUTION WIDTH 14.2 % (9.0-15.0)
[2019-09-26 12:41] LABS: CALCIUM 9.2 mg/dL (8.4-11.0); CREATININE 1.48 mg/dL (0.55-1.30)
[2019-09-26 12:46] LABS: ALBUMIN 3.5 g/dL (3.4-4.8)
[2019-09-26 12:51] LABS: POTASSIUM 2.4 mmol/L (3.5-5.1)
--- NOTE | 2019-09-26 12:52 | NUR ---
ER Dr. Blandon at bedside examining patient.
[2019-09-26] MEDS ORDERED: DIPHENHYDRAMINE INJ 50 MG/ML VIAL IVP ONE (13:00)
[2019-09-26] MEDS ORDERED: METOCLOPRAMIDE HCL 10 MG/2 ML VIAL IVP ONE (13:00)
--- NOTE | 2019-09-26 13:08 | NUR ---
Patient transported to radiology via rad, accompanied by chief radiation therapist.
[2019-09-26 13:14] LABS: BILIRUBIN,URINE NEGATIVE (NEGATIVE); BLOOD, URINE 1+ (NEGATIVE); CLARITY/URINE CLEAR (CLEAR); COLOR,URINE YELLOW (YELLOW); GLUCOSE,URINE 1+ (NEGATIVE); KETONES,URINE NEGATIVE (NEGATIVE); LEUKOCYTE ESTERASE ,URINE 2+ (NEGATIVE); NITRITE, URINE NEGATIVE (NEGATIVE); PH,URINE 6.5 (5.0-8.0); PROTEIN URINE 2+ (NEGATIVE)
[2019-09-26] MEDS ORDERED: MAGNESIUM SULFATE/D5W 100 ML IV ONE (13:15)
[2019-09-26] MEDS ORDERED: KCL 40 mEq in 100 mL (PREMIX) 100 ML IV ONE (13:15)
[2019-09-26 13:20] LABS: BACTERIA,URINE FEW /HPF (None Seen)
--- NOTE | 2019-09-26 13:20 | NUR ---
Medication reconciliation completed with information provided by the patient. Any prior medication reconciliation on file was reviewed and corrected.
--- NOTE | 2019-09-26 13:25 | NUR ---
pt retunred from Ct scan
[2019-09-26] MEDS ORDERED: KCL 20 mEq in 100 mL (PREMIX) 200 ML IV ONE (13:36)
[2019-09-26] MEDS ORDERED: POTASSIUM CHLORIDE 20 MEQ TAB.PRT.SR PO ONE (14:00)
--- NOTE | 2019-09-26 14:10 | NUR ---
# 22 gauge angiocath placed to RFA. Use of asceptic technique. Opsite placed over site. Blood return noted. Blood for lab drawn from site. Flushed with 10 cc of normal saline. No evidence of infiltration noted. Patient tolerated well.
--- NOTE | 2019-09-26 14:23 | NUR ---
pt will be admitted under the care of Dr. Bolton. Orders received.
[2019-09-26] MEDS ORDERED: fentaNYL CITRATE/PF 100 MCG/2 ML AMP IVP ONE (14:30)
--- NOTE | 2019-09-26 14:30 | NUR ---
Medicated the pt w/ Fentanyl 50mcg per Md order. Will reassess.
--- NOTE | 2019-09-26 14:45 | NUR ---
Patient will be admitted to care of Dr. Bolton . Admitted to tele unit. Will go to room 126-a. Belongings list completed. Complete and up to date summary report printed. Bedside report given to Luis GRACE. IV sites x 2 patent and infusing well.
--- NOTE | 2019-09-26 14:53 | NUR ---
admission notes, received pt in bed, pt is aaox4, chief complain was n/v and abdominal pain. under the care of dr che. kristyn rider and mag rider infusing on both iv sites. no c/o of pain, no sob. no nausea, last vomit was around 10 am. last bm 09.23.19. safety precaution in place. call light in reach. bed in low position. will cont to monitor.
[2019-09-26 14:59] VITALS: BP_SYST 139
[2019-09-26 15:24] VITALS: BP_SYST 139
--- NOTE | 2019-09-26 16:15 | NUR ---
paged dr che for pain med, pt suddenly c/o abd pain, 101/0 , cramping in nature. pt gven nausea med charity, stated that as she has nausea with pain.
--- NOTE | 2019-09-26 16:22 | NUR ---
dr che here and seen patient.
--- NOTE | 2019-09-26 16:51 | NUR ---
CONSULT GI VOMITING DR SAUL [phone] DR DONNELLY SLAT BASKET TOP MAKER S/W ANTHONY EXCHANGE
[2019-09-26] MEDS: ONDANSETRON HCL 4 MG/2 ML VIAL IVP PRN (16:55)
[2019-09-26] MEDS: HYDROmorphone 1 MG INJ. 1 MG/ML AMPUL IVP PRN ×2 (16:56→21:20)
[2019-09-26] MEDS ORDERED: PANTOPRAZOLE SODIUM 40 MG/VIAL (PROTONIX) IVP ONE (17:00)
[2019-09-26] MEDS: INSULIN REGULAR, HUMAN 100 UNITS/ML, 10 ML VIAL (humuLIN R) SUBCUT PRN (17:05)
[2019-09-26] MEDS: cefTRIAXone 1 GM in D5W 50 ML IV SCH (17:51)
--- NOTE | 2019-09-26 19:35 | NUR ---
ROUNDS PATIENT RESTING COMFORTABLY IN BED, VITALS STABLE, NO PAIN AT THIS TIME. ASSESSMENT DONE AND DOCUEMNTED. SEE FLOWSHEET. SAFETY AND FALL MEASURES IN PLACED. BED IN LOW AND LOCKED POSITION. CALL LIGHT PLACED WITHIN REACH.
--- NOTE | 2019-09-26 19:55 | NUR ---
/ + 20 k iv fluids not started due to med not available from pharmacy. told pharmacist but not delivered to the units, informed house sup, but not able to give at this time. endorsed give the ivf and the k-rider to night nurse della.
[2019-09-26] MEDS ORDERED: KCL 20 mEq in D5/0.45NS 1000mL 1,000 ML IV ONE (20:55)
--- NOTE | 2019-09-26 21:16 | NUR ---
MEDICATION DUE MEDICATIONS GIVEN SCHEDULED, TOLERATED WELL. WILL CONTINUE TO MONITOR.
[2019-09-26] MEDS: KCL 20 mEq in D5/0.45NS 1000mL 1,000 ML IV SCH ×2 (21:19→22:00)
[2019-09-26] MEDS: PREGABALIN 25 MG CAPSULE (LYRICA) PO SCH (21:24)
[2019-09-26] MEDS: busPIRone HCL 5 MG TABLET PO SCH (21:24)
[2019-09-26] MEDS: ENOXAPARIN SODIUM 30 MG/0.3 ML SYRINGE SUBCUT SCH (21:26)
--- NOTE | 2019-09-27 00:14 | NUR ---
PATIENT RESTING: Patient resting quietly. No acute distress noted. Vital signs within normal range.
[2019-09-27] MEDS: ONDANSETRON HCL 4 MG/2 ML VIAL IVP PRN ×5 (00:31→23:53)
[2019-09-27] MEDS: INSULIN REGULAR, HUMAN 100 UNITS/ML, 10 ML VIAL (humuLIN R) SUBCUT PRN ×4 (00:35→16:16)
[2019-09-27 01:39] VITALS: BP_SYST 124
[2019-09-27] MEDS: HYDROmorphone 1 MG INJ. 1 MG/ML AMPUL IVP PRN ×6 (01:44→23:54)
--- NOTE | 2019-09-27 04:10 | NUR ---
PATIENT RESTING: Patient resting quietly. No acute distress noted. Vital signs within normal range.
[2019-09-27] MEDS: KCL 20 mEq in D5/0.45NS 1000mL 1,000 ML IV SCH ×2 (06:00→09:01)
--- NOTE | 2019-09-27 06:55 | NUR ---
CLOSING NOTES PATIENT RESTING COMFORTABLY IN BED, NO COMPLAINTS AT THIS TIME. ALL NEEDS ATTENDED TO. SAFETY MEASURES MAINTAINED. CALL LIGHT PLACED WITHIN REACH.
[2019-09-27 07:34] LABS: CALCIUM 8.3 mg/dL (8.4-11.0); CREATININE 1.52 mg/dL (0.55-1.30)
[2019-09-27 07:37] LABS: BASOPHILS % (AUTO) 0.3 % (0.0-2.0); EOSINOPHILS # (AUTO) 0.1 K/uL (0.0-0.4); EOSINOPHILS % (AUTO) 0.8 % (0.0-4.0); HEMATOCRIT 34.7 % (36-48); LYMPHOCYTES # (AUTO) 3.2 K/uL (1.0-5.5); LYMPHOCYTES % (AUTO) 44.9 % (20.5-51.5); MEAN CORPUSCULAR HEMOGLOBIN 31 pg (27-31); MEAN CORPUSCULAR HGB CONC 35 % (32-36); MEAN CORPUSCULAR VOLUME 91 fL (79.0-98.0); MONOCYTES # (AUTO) 0.6 K/uL (0.0-1.0); MONOCYTES % (AUTO) 8.6 % (1.7-9.3); NEUTROPHILS # (AUTO) 3.2 K/uL (1.8-7.7); NEUTROPHILS % (AUTO) 45.4 % (40.0-70.0); PLATELET COUNT (AUTO) 274 K/uL (130-430); RED BLOOD CELL COUNT(AUTO) 3.84 MIL/uL (4.2-6.2); WHITE BLOOD COUNT (AUTO) 7.1 K/uL (4.8-10.8)
[2019-09-27 07:43] LABS: POTASSIUM 2.5 mmol/L (3.5-5.1)
[2019-09-27 07:52] VITALS: BP_SYST 117
--- NOTE | 2019-09-27 08:00 | NUR ---
paged dr che for k-level of 2.5
[2019-09-27] MEDS: busPIRone HCL 5 MG TABLET PO SCH ×2 (08:29→20:47)
[2019-09-27] MEDS: PREGABALIN 25 MG CAPSULE (LYRICA) PO SCH ×3 (08:29→20:47)
[2019-09-27] MEDS: PANTOPRAZOLE SODIUM 40 MG/VIAL (PROTONIX) IVP SCH ×2 (08:30→20:47)
--- NOTE | 2019-09-27 08:48 | NUR ---
REPAGED DR GIBSON FOR CRIT. LAB VALUE.
--- NOTE | 2019-09-27 09:47 | NUR ---
PATIENT GIVEN ZOFRAN AND DILAUDID, PT C/O NAUSEA AND PAIN AFTER WALKING FROM BATHROOM.
--- NOTE | 2019-09-27 10:36 | NUR ---
PAGED PAGED TAMAR APARICIO AT [phone] SPOKE WITH JYOTI.
[2019-09-27] MEDS ORDERED: POTASSIUM CHLORIDE 20 MEQ TAB.PRT.SR PO ONE (11:30)
[2019-09-27] MEDS ORDERED: POTASSIUM CHLORIDE 40 MEQ in NS 250 ML IV ONE (12:00)
--- NOTE | 2019-09-27 12:30 | NUR ---
DR GIBSON CALLED AND MADE AWARE THAT PT'S BLOOD SUGAR WAS 547 , NEW ORDERS GIVEN AND CARRIED OUT.
[2019-09-27] MEDS: KCL 20 mEq in 0.45% NS 1000 mL 1,000 ML IV SCH ×2 (14:52→23:53)
[2019-09-27] MEDS: cefTRIAXone 1 GM in D5W 50 ML IV SCH (16:17)
[2019-09-27 18:00] VITALS: BP_SYST 120
[2019-09-27 20:00] VITALS: BP_SYST 119
--- NOTE | 2019-09-27 20:00 | NUR ---
Closing note: Patient is resting in bed, no acute distress. Tolerating room air. IV fluids infusing well to left AC IV site. Call light with patient. Will continue with plan of care.
--- NOTE | 2019-09-27 20:01 | NUR ---
closing notes, patient has been stable the whole shift except for critically high fingerstick blood sugar. primary made aware and new orders given. pt given pain meds and nausea medications as ordered . pt received potassium rider and pills for k-level of 2.5. pt on clear liquid diet, recieving iv fluids. pt signed consent for egd in am, will be npo after midnight. endorsed to night nurse ne.
[2019-09-27] MEDS: ENOXAPARIN SODIUM 30 MG/0.3 ML SYRINGE SUBCUT SCH (20:51)
--- NOTE | 2019-09-27 23:54 | NUR ---
Pain/nausea: Patient is complaining of 8/10 abdominal pain and nausea. PRN Dilaudid and PRN Zofran administered per MD order via left AC IV site. Call light with pt. Safety, fall precautions in place. Will continue monitoring.
--- NOTE | 2019-09-28 00:18 | NUR ---
Dr. Bolton: Paged and spoke with Dr. Bolton over phone. made aware that patient's 00:00 blood sugar fingerstick was 472, and that patient will be NPO after midnight for EGD in the AM. Order received to administer 15 units regular insulin subcutaneously once. Order verified by read-back, RN to input.
[2019-09-28] MEDS ORDERED: INSULIN REGULAR, HUMAN 100 UNITS/ML, 10 ML VIAL (humuLIN R) SUBCUT ONE (00:30)
[2019-09-28 02:19] VITALS: BP_SYST 128
--- NOTE | 2019-09-28 03:15 | NUR ---
IV site D/C'd: Left forearm IV site noted to be leaking after patient came back from bathroom. Site d/c'd, IV fluids resumed to left AC, site flushes well with NS, no infiltration noted. Will continue monitoring.
[2019-09-28] MEDS: INSULIN REGULAR, HUMAN 100 UNITS/ML, 10 ML VIAL (humuLIN R) SUBCUT PRN ×3 (05:50→16:41)
[2019-09-28] MEDS: ONDANSETRON HCL 4 MG/2 ML VIAL IVP PRN (05:51)
[2019-09-28] MEDS: HYDROmorphone 1 MG INJ. 1 MG/ML AMPUL IVP PRN ×4 (05:53→22:19)
--- NOTE | 2019-09-28 05:53 | NUR ---
Pain/nausea: Patient is complaining of severe abdominal pain and nausea. PRN Dilaudid and PRN Zofran administered per MD order via left AC IV site. Call light with pt. Safety, fall precautions in place. Will continue monitoring.
--- NOTE | 2019-09-28 06:58 | NUR ---
Closing note: Patient is resting in bed, no acute distress. Tolerating room air. IV fluids infusing well to left AC IV site. Patient has been NPO since midnight for EGD this AM. All needs met. Hourly rounding performed throughout shift. Safety, fall, precautions in place. Will endorse care to dayshift RN.
[2019-09-28 06:59] LABS: BASOPHILS % (AUTO) 0.6 % (0.0-2.0); EOSINOPHILS # (AUTO) 0.1 K/uL (0.0-0.4); HEMATOCRIT 33.8 % (36-48); HEMOGLOBIN 11.5 g/dL (12.0-16.0); LYMPHOCYTES # (AUTO) 2.9 K/uL (1.0-5.5); LYMPHOCYTES % (AUTO) 42.1 % (20.5-51.5); MEAN CORPUSCULAR HEMOGLOBIN 31 pg (27-31); MEAN CORPUSCULAR HGB CONC 34 % (32-36); MEAN CORPUSCULAR VOLUME 91 fL (79.0-98.0); MONOCYTES # (AUTO) 0.6 K/uL (0.0-1.0); MONOCYTES % (AUTO) 9.2 % (1.7-9.3); NEUTROPHILS # (AUTO) 3.2 K/uL (1.8-7.7); NEUTROPHILS % (AUTO) 47.1 % (40.0-70.0); PLATELET COUNT (AUTO) 247 K/uL (130-430); RED BLOOD CELL COUNT(AUTO) 3.71 MIL/uL (4.2-6.2); RED CELL DISTRIBUTION WIDTH 14.6 % (9.0-15.0); WHITE BLOOD COUNT (AUTO) 6.8 K/uL (4.8-10.8)
[2019-09-28 07:18] LABS: CALCIUM 8.1 mg/dL (8.4-11.0); CREATININE 1.33 mg/dL (0.55-1.30); POTASSIUM 3.5 mmol/L (3.5-5.1)
[2019-09-28] MEDS ORDERED: SIMETHICONE 40 MG/0.6 ML ML ONE (07:32)
[2019-09-28] MEDS: BENZOCAINE 20% 0.5mL UD SPRAY MM ONE ×2 (07:32→08:05)
[2019-09-28] MEDS: fentaNYL CITRATE/PF 100 MCG/2 ML AMP ONE ×4 (07:32→08:10)
[2019-09-28] MEDS: MIDAZOLAM HCL 5 MG/5 ML VIAL ONE ×5 (07:33→08:12)
--- NOTE | 2019-09-28 09:00 | NUR ---
NOTE Pt returned from GI lab to room. Pt left the floor via bed to GI lab at 0730. Pt stable.
[2019-09-28 09:14] VITALS: BP_SYST 124
[2019-09-28] MEDS: busPIRone HCL 5 MG TABLET PO SCH ×2 (09:20→20:56)
[2019-09-28] MEDS: PANTOPRAZOLE SODIUM 40 MG/VIAL (PROTONIX) IVP SCH ×2 (09:21→20:55)
[2019-09-28] MEDS: PREGABALIN 25 MG CAPSULE (LYRICA) PO SCH ×3 (09:21→20:55)
--- NOTE | 2019-09-28 11:00 | NUR ---
Note Pt given all her 09am PO medications, vital signs taken and pt now resting in bed. Denies any SOB/resp distress or severe abdominal pain/discomfort at this time. IV in left AC intact and patent infusing IVF's well. Tele unit attached and intact. Pt was given some Jello with PO medications. No needs noted at this time. Pt's at bedside. Call light within reach.
[2019-09-28] MEDS: KCL 20 mEq in 0.45% NS 1000 mL 1,000 ML IV SCH ×2 (11:34→20:00)
[2019-09-28 11:57] VITALS: BP_SYST 136
--- NOTE | 2019-09-28 12:20 | NUR ---
Note Pt resting in bed with brother at bedside visiting. No needs noted at this time. Call light within reach.
--- NOTE | 2019-09-28 14:55 | NUR ---
Note Called Dr Bolton per pt's request for tightness and pain in lower extremities. Called exchange and spoke to Tegan
--- NOTE | 2019-09-28 15:15 | NUR ---
Nutrition Assessment (short note d/t high patient load) A - RD reviewed pertinent nutrition-related info via EMR (physician notes/nursing notes/labs/meds/nursing care trends/care activity). Admission Dx: Intractable N/V PMH: HTN, DM per physician notes Current Diet Order/Nutrition Support: Mechanical soft x0 days Ht: 6'4"/5'4" Wt: 244#/111 kg IBW: 120#/55 kg %IBW: 202% Adj IBW: 151#/69 kg UBW: 180#/82 kg %UBW: 136% BMI: 42.1 kg/m2 (obesity class III) Subjective Info: Pt seen high risk d/t BMI greater than 40 kg/m2. Pt seen resting in bed, visually obese for ht, c/w anthropometrics and verified by pt. Pt attested to wt gain over the past year d/t lack of PA (pt reported diabetic neuropathy and pain w/ walking) and fluid retention. Pt reported that she felt nauseous after eating lentil soup d/t tomato ingredient, but enjoyed the fish and rice entree. Pt denied any chewing/swallowing difficulties. Pt denied any V/D, but pt attested to constipation today and yesterday, though was able to pass stool. Pt reported dislike of all tomato products and coffee -- RD noted in [employer]. Pt has very elevated BG readings -- BG 307 mg/dl and POC BG 369 mg/dl. PO intakes of 83% average x3 meals per EMR records. Pt would most benefit from diabetic-friendly diet. ESTIMATED NUTRITIONAL NEEDS CALORIES/DAY: 9486-8981 kcal/day (25-30 kcal/kg Adj IBW for geriatric maintenance) PROTEIN/DAY: 69-83 gm/day (1-1.2 gm/kg Adj IBW for geriatric maintenance) FLUID/DAY: 3.3-3.9 L/day (30-35 ml/kg CBW for possible dehydration d/t N/V) D - Altered nutrition-related labs related to endocrine dysfunction as evidenced by elevated BG and POC BG lab values. Malnutrition related to morbid obesity as evidenced by BMI: 42.1 kg/m2 and 202% of IBW. I - Recommend CCHO, mechanical soft diet M - Monitor appetite and PO intakes w/ goal of pt meeting at least 75% of estimated nutritional needs, labs trending WNL, normal GI function, and skin integrity/wt maintenance E - Moderate risk; F/U within 3-5 days Addendum: 09/28/19 at [address] Pt declined nutrition education and stated that she received some nutrition handouts at her last hospital visit. Pt stated she wants to attend diabetes classes in the new year to improve her health.
--- NOTE | 2019-09-28 15:16 | NUR ---
Note Dr Bolton on the floor and was notified that pt states she has pain in lower extremities for the last one hour. to assess pt at bedside.
--- NOTE | 2019-09-28 15:26 | NUR ---
Dietitian Recommendations * Recommend CCHO, mechanical soft diet LP, RD Please refer to Nutrition Assessment for details.
[2019-09-28 16:00] VITALS: BP_SYST 159
[2019-09-28] MEDS: cefTRIAXone 1 GM in D5W 50 ML IV SCH (16:24)
--- NOTE | 2019-09-28 18:30 | NUR ---
Note Pt ambulates to restroom and to sink in room independently. Pt was checked on q1' and PRN all shift for needs and care. No SOB/resp distress or severe abdominal pain/discomfort noted at this time. Pt's at bedside at this time. IV in left AC intact and patent infusing IVF's well. No needs noted a this time. Call light within reach.
--- NOTE | 2019-09-28 19:35 | NUR ---
ROUNDS PATIENT IN BED, WATCHING TV, DENIES PAIN AT THIS TIME. ASSESSMENT DONE AND DOCUEMNTED. SEE FLOWSHEET. NEEDS ATTENDED TO. SAFETY AND FALL PRECAUTION MEASURES IN PLACED. BED IN LOW AND LOCKED POSITION. CALL LIGHT PLACED WITHIN REACH.
[2019-09-28 20:00] VITALS: BP_SYST 125
[2019-09-28] MEDS: ENOXAPARIN SODIUM 30 MG/0.3 ML SYRINGE SUBCUT SCH (20:59)
--- NOTE | 2019-09-28 21:12 | NUR ---
MEDICATION DUE MEDICATIONS GIVEN SCHEDULED, TOLERATED WELL. WILL CONTINUE TO MONITOR.
[2019-09-29] VITALS: BP_SYST 119
--- NOTE | 2019-09-29 00:17 | NUR ---
PATIENT RESTING: Patient resting quietly. No acute distress noted. Vital signs within normal range.
[2019-09-29] MEDS: INSULIN REGULAR, HUMAN 100 UNITS/ML, 10 ML VIAL (humuLIN R) SUBCUT PRN ×3 (00:38→11:07)
--- NOTE | 2019-09-29 01:45 | NUR ---
ROUNDS PATIENT ASLEEP, RESPIRATIONS EVEN AND UNLABORED, WILL CONTINUE TO MONITOR.
--- NOTE | 2019-09-29 04:13 | NUR ---
PATIENT RESTING: Patient resting quietly. No acute distress noted. Vital signs within normal range.
[2019-09-29] MEDS: HYDROmorphone 1 MG INJ. 1 MG/ML AMPUL IVP PRN ×2 (04:43→10:29)
[2019-09-29] MEDS: KCL 20 mEq in 0.45% NS 1000 mL 1,000 ML IV SCH ×2 (06:00→16:00)
--- NOTE | 2019-09-29 06:55 | NUR ---
CLOSING NOTES PATIENT AWAKE, VITALS STABLE, NO PAIN AT THIS TIME. ALL NEEDS ATTENDED TO. SAFETY MEASURES MAINTAINED. CALL LIGHT PLACED WITHIN REACH.
[2019-09-29 08:00] VITALS: BP_SYST 130
--- NOTE | 2019-09-29 08:00 | NUR ---
Note Pt sitting up in bed eating her breakfast. No SOB/resp distress or abdominal pain/discomfort was noted at this time. Tele unit attached and intact. IV in left AC intact and patent at this time. Pt got OOB to restroom with steady gait. Call light within reach.
[2019-09-29] MEDS: busPIRone HCL 5 MG TABLET PO SCH (08:33)
[2019-09-29] MEDS: PANTOPRAZOLE SODIUM 40 MG/VIAL (PROTONIX) IVP SCH ×4 (08:34→16:32)
[2019-09-29] MEDS: PREGABALIN 25 MG CAPSULE (LYRICA) PO SCH ×2 (08:34→14:28)
--- NOTE | 2019-09-29 10:23 | NUR ---
Note Pt's IV was infiltrated - IV dc'd and new IV inserted in right hand and Protonix IVP was given at this time. Previous Protonix IVP had to be wasted. Pt resting soundly in bed, now states she needs Dilaudid 1mg IVP at this time. States pain 7/10 on pain scale of 010 IV in right hand saline locked - intact and patent at this time. Call light within reach.
--- NOTE | 2019-09-29 10:30 | NUR ---
Note Dilaudid 1mg IVP given at this time.
[2019-09-29] MEDS ORDERED: PANTOPRAZOLE SODIUM 40 MG/VIAL (PROTONIX) ONE (10:36)
--- NOTE | 2019-09-29 11:50 | NUR ---
Note Pt resting in bed at this time. Denies any needs at this time. Call light within reach.
[2019-09-29 12:34] VITALS: BP_SYST 124
--- NOTE | 2019-09-29 14:00 | NUR ---
Note Dr Gaston on the floor assessing pt and answering questions/concerns at this time.
[2019-09-29] MEDS: SUCRALFATE 1 GM/10 ML UDC GT SCH ×2 (14:32→16:32)
--- NOTE | 2019-09-29 15:15 | NUR ---
Note Pt ambulatory to restroom at this time independently. No needs noted at this time. Call light within reach.
[2019-09-29 15:41] VITALS: BP_SYST 125
--- NOTE | 2019-09-29 15:45 | NUR ---
Note Dr Bolton at bedside speaking to pt and her , questions/concerns were answered at this time. Pt's EGD copy was given to pt by Dr Bolton. Dr Bolton also wrote prescription for pt for Carafate and Protonix. Pt was given verbal discharge instructions. Call light within reach.
--- NOTE | 2019-09-29 16:45 | NUR ---
Note Pt's tele unit was dc'd and returned to licensed chemical spray technician. IV in left hand was dc'd - site benign - no bleeding/redness/drainage or tenderness at site noted. Pt was given discharge instructions and questions/concerns were answered at this time. Pt denies any SOB/resp distress noted at this time. Pt stable. Pain tolerable at this time. Pt dressed in street clothes and packed all belongings and checked side table and drawers for belongings. Pt's at bedside and assisting pt with her needs and care.
--- NOTE | 2019-09-29 17:00 | NUR ---
Note Pt of the floor via wheelchair with all her belongings and discharge paperwork/prescription to private car.
== END 2019-09-29 17:05 | disposition home or self-care (01) | DRG 682 ==
LOC: SED 10:51 → STU 13:59
PROVIDERS: ADMIT Family Medicine; ATTEND Family Medicine
PROC: 0DB68ZX Excision of Stomach, Via Natural or Artificial Opening Endoscopic, Diagnostic (ICD-10-PCS; 2019-09-28)
PROC: 0DB38ZX Excision of Lower Esophagus, Via Natural or Artificial Opening Endoscopic, Diagnostic (ICD-10-PCS; principal; 2019-09-28 08:00)
DX: N17.0 Acute kidney failure with tubular necrosis (principal); E11.00 Type 2 diabetes mellitus with hyperosmolarity without nonketotic hyperglycemic-hyperosmolar coma (NKHHC); N39.0 Urinary tract infection, site not specified; Z68.41 Body mass index [BMI] 40.0-44.9, adult; E86.0 Dehydration; K29.60 Other gastritis without bleeding; E11.43 Type 2 diabetes mellitus with diabetic autonomic (poly)neuropathy; K31.84 Gastroparesis; I10 Essential (primary) hypertension; E11.65 Type 2 diabetes mellitus with hyperglycemia; E66.01 Morbid (severe) obesity due to excess calories; E87.6 Hypokalemia; K21.9 Gastro-esophageal reflux disease without esophagitis; Z88.1 Allergy status to other antibiotic agents; Z88.2 Allergy status to sulfonamides; Z79.899 Other long term (current) drug therapy; Z90.49 Acquired absence of other specified parts of digestive tract; Z79.4 Long term (current) use of insulin
CPT/HCPCS: 36415; 43239; 80048; 80053; 81000-TC; 82962; 83690-TC; 83735-TC; 84132-TC; 85025; 87081; 87086; 88305; 88312; 88313; 93005; 96365; 96368; 96375; 99285; C9113; G0378; J0696; J1170; J1200; J1650; J1815; J2250; J2405; J2765; J3010; J3480; J7030; J7050; J7060